=== PATIENT | female | born 1945 | race Caucasian/White ===

== ENCOUNTER → 2016-03-07 | Outpatient (CLI) | payer OTHER ==
[2016-03-07 16:06] LABS: HEMOGLOBIN A1C 6.46 % (4.2-6.0); MEAN BLOOD GLUCOSE (CALC) 129.118 mg/dL
== END ==
LOC: MOB LAB 11:51
DX: E11.9 Type 2 diabetes mellitus without complications (principal); I10 Essential (primary) hypertension; E55.9 Vitamin D deficiency, unspecified
CPT/HCPCS: 36415; 82306; 83036; 84443

== ENCOUNTER → 2016-03-13 | Outpatient (CLI) | payer OTHER ==
--- NOTE | 2016-03-14 16:26 | DI ---
CT BONE DENSITOMETRY OF THE SPINE AND HIP, 03/13/2016 12:36 PM : Clinical History: Asymptomatic post menopausal patient. Screening. Previous Exam: 12/14/2005. 3D Quantitative CT (QCT) Bone Mineral Densitometry: The [place] scans show mild compression fractures of T12 and L1. Low dose scans are sampled through t he midbodies of L1 and L2. Average bone mineral density (BMD) is 67.9 mg/mL corresponding to a volume tric T-score of -3.9 and Z-score of -0.7. The [employer]'s (ACR) volumetric QCT BM D conversion table categorizes this patient as having osteoporosis of the lumbar spine. The previous study gave a bone mineral density value of 109.[address] X-Ray Absorptiometry (CTXA) Bone Mineral Densitometry of the Left Hip: Total hip BMD: 658 mg/cm2 T-score: -2.3 Z-score: -0.7 Femoral neck BMD: 488 mg/cm2 T-score: -2.8 Z-score: -1.3 Note: T-scores of the spine and hip are discordant approximately 40% of the times. Changes in actual QCT or CTXA/DEXA measurements are more reliable in assessment of change in BMD status rather than hakeem nges in T-scores. READIN. The QCT lumbar spine BMD value by ACR's 3D volumetric to 2D areal conversion categorizes this pat ient as having osteoporosis of the lumbar spine. The QCT spine T-score is -3.9. The presence of the c ompression fractures at T12 and L1 indicate this patient by definition has severe osteoporosis. 2. The CTXA total hip and femoral neck BMD T-scores are -2.3 and -2.8, respectively. The left total hip T-score indicates this patient has osteopenia of the hip.
== END ==
LOC: CT 12:31
DX: Z13.820 Encounter for screening for osteoporosis (principal); M85.80 Other specified disorders of bone density and structure, unspecified site
CPT/HCPCS: 77078

== ENCOUNTER → 2016-04-17 | Outpatient (CLI) | payer OTHER ==
[2016-04-17 08:16] LABS: BUN/CREATININE RATIO 21.81 (6-20); CALCIUM 9.7 mg/dL (8.7-10.7); CREATININE 1.1 mg/dL (0.50-1.20); PHOSPHORUS 4.3 mg/dl (2.4-4.3); POTASSIUM 4.5 meq/L (3.8-5.2)
== END ==
LOC: LAB 06:29
DX: M81.0 Age-related osteoporosis without current pathological fracture (principal)
CPT/HCPCS: 36415; 80048; 84100

== ENCOUNTER → 2016-04-19 | Outpatient (CLI) | payer OTHER | LOC: MMPC 09:00 | DX: M81.0 Age-related osteoporosis without current pathological fracture (principal) | CPT/HCPCS: G0463; J0897 ==

== ENCOUNTER → 2016-05-03 | Outpatient (CLI) | payer OTHER | LOC: MMPC 09:00 | DX: R10.11 Right upper quadrant pain (principal); F03.90 Unspecified dementia, unspecified severity, without behavioral disturbance, psychotic disturbance, mood disturbance, and anxiety; E11.9 Type 2 diabetes mellitus without complications; E66.01 Morbid (severe) obesity due to excess calories; I10 Essential (primary) hypertension; G40.909 Epilepsy, unspecified, not intractable, without status epilepticus; M54.5 Low back pain; M25.561 Pain in right knee; M25.562 Pain in left knee; M81.0 Age-related osteoporosis without current pathological fracture | CPT/HCPCS: 99213; G0463 ==

== ENCOUNTER → 2016-06-24 | Outpatient (CLI) | payer OTHER | LOC: MMPC 09:00 | PROVIDERS: ATTEND Physician Assistant Medical | DX: K04.7 Periapical abscess without sinus (principal) | CPT/HCPCS: 99213; G0463 ==

== ENCOUNTER → 2016-07-05 | Outpatient (CLI) | payer OTHER | LOC: MMPC 11:11 | DX: E11.9 Type 2 diabetes mellitus without complications (principal); K05.6 Periodontal disease, unspecified; I48.91 Unspecified atrial fibrillation; K21.9 Gastro-esophageal reflux disease without esophagitis; E55.9 Vitamin D deficiency, unspecified; M81.0 Age-related osteoporosis without current pathological fracture; I10 Essential (primary) hypertension; F03.90 Unspecified dementia, unspecified severity, without behavioral disturbance, psychotic disturbance, mood disturbance, and anxiety ==

== ENCOUNTER → 2016-07-05 | Outpatient (CLI) | payer OTHER ==
[2016-07-05 15:49] LABS: BASOPHILS # (AUTO) 0.07 10*3/UL; BASOPHILS % (AUTO) 1.2 % (0-1); EOSINOPHILS # (AUTO) 0.17 10*3/UL; EOSINOPHILS % (AUTO) 2.9 % (0-8); HEMATOCRIT 38.4 % (37.0-47.0); HEMOGLOBIN 12.5 g/dL (12.0-16.0); LYMPHOCYTES # (AUTO) 1.67 10*3/uL; MEAN CORPUSCULAR HEMOGLOBIN 31.1 PG (27-31); MEAN CORPUSCULAR HGB CONC 32.6 g/dL (33-37); MEAN CORPUSCULAR VOLUME 95.5 FL (81-99); MEAN PLATELET VOLUME 9.7 FL (7.4-12.2); MONOCYTES # (AUTO) 0.43 10*3/UL (0.3-0.8); MONOCYTES % (AUTO) 7.3 % (5-15); NEUTROPHILS # (AUTO) 3.57 10*3/UL; NEUTROPHILS % (AUTO) 60.3 % (50-80); RED BLOOD COUNT 4.02 10^6/uL (4.20-5.40)
[2016-07-05 15:50] LABS: PLATELET MORPHOLOGY COMMENT NORMAL MORPHOLOGY (NORM); RBC MORPHOLOGY COMMENT NORMAL MORPHOLOGY (NORM); WBC MORPHOLOGY COMMENT NORMAL MORPHOLOGY (NORM)
[2016-07-05 16:17] LABS: BLOOD UREA NITROGEN 28 mg/dL (7-22); CALCIUM 10.2 mg/dL (8.7-10.7); SERUM ALBUMIN 4.1 g/dL (3.5-4.8)
[2016-07-05 16:18] LABS: HEMOGLOBIN A1C 6.11 % (4.2-6.0)
== END ==
LOC: MOB LAB 13:31
DX: E11.9 Type 2 diabetes mellitus without complications (principal); I10 Essential (primary) hypertension; E78.5 Hyperlipidemia, unspecified; K05.6 Periodontal disease, unspecified
CPT/HCPCS: 36415; 80053; 83036; 85025

== ENCOUNTER → 2016-07-13 | Outpatient (CLI) | payer OTHER | LOC: MMPC 15:00 | DX: E11.9 Type 2 diabetes mellitus without complications (principal); E66.9 Obesity, unspecified; Z71.3 Dietary counseling and surveillance | CPT/HCPCS: G0108 ==

== ENCOUNTER → 2016-07-28 | Outpatient (CLI) | payer OTHER | LOC: MMPC 09:00 | PROVIDERS: ATTEND Physician Assistant Medical | DX: R05 Cough (principal); J98.8 Other specified respiratory disorders | CPT/HCPCS: 99213; G0463 ==

== ENCOUNTER → 2016-10-12 | Outpatient (CLI) | payer OTHER ==
[2016-10-12 16:10] LABS: BLOOD UREA NITROGEN 21 mg/dL (7-22); CALCIUM 10.3 mg/dL (8.7-10.7)
== END ==
LOC: MOB LAB 14:10
DX: E11.9 Type 2 diabetes mellitus without complications (principal); M81.0 Age-related osteoporosis without current pathological fracture; I10 Essential (primary) hypertension; E78.5 Hyperlipidemia, unspecified; R30.0 Dysuria; I48.91 Unspecified atrial fibrillation; E55.9 Vitamin D deficiency, unspecified; I63.9 Cerebral infarction, unspecified; F03.90 Unspecified dementia, unspecified severity, without behavioral disturbance, psychotic disturbance, mood disturbance, and anxiety; G40.909 Epilepsy, unspecified, not intractable, without status epilepticus
CPT/HCPCS: 36415; 80048; 84100

== ENCOUNTER → 2016-10-13 | Outpatient (CLI) | payer OTHER ==
[2016-10-13 10:13] LABS: BILIRUBIN,URINE NEGATIVE (NEG); CLARITY,URINE CLEAR (CLEAR); COLOR,URINE YELLOW; GLUCOSE, URINE (UA) NEGATIVE (NEG); NITRATE,URINE NEGATIVE (NEG); OCCULT BLOOD,URINE NEGATIVE (NEG); PH,URINE 5.5 (5.0-8.5); PROTEIN,URINE NEGATIVE (NEG); UROBILINOGEN,URINE 0.2 mg/dL (0.2)
[2016-10-13 10:15] LABS: BACTERIA,URINE MANY; RBC,URINE 0-3 /hpf; SQUAMOUS EPITHELIAL CELL,UR RARE; URINE SAMPLE TYPE CLEAN CATCH URINE
== END ==
LOC: MOB LAB 08:39
DX: R30.0 Dysuria (principal); R82.71 Bacteriuria
CPT/HCPCS: 81001; 87077; 87088; 87186

== ENCOUNTER 2018-05-22 12:14 | Inpatient (IN) ==
[2018-05-22] MEDS ORDERED: Sodium Chloride 0.9% 1,000 ML PRIMARY IV ONE ×3 (12:26→15:45)
--- NOTE | 2018-05-22 12:40 | PDOC ---
General Adult HPI - General Chief Complaint: Neurological Complaints Stated Complaint: SLURRED SPEECH, WEAKNESS Date Seen by Provider: 05/22/18 Time Seen by Provider: 12:25 Source: POSITIVE: Patient, EMS, Other (Family member) Exam Limitations: POSITIVE: No limitations Nurse's Notes Reviewed & Considered: Yes EMS Report Reviewed & Considered: Verbal - History of Present Illness Initial Comment: The patient is a 73-year-old female who is brought to the emergency department by ambulance after she developed acute weakness. She apparently was walking to the bathroom when she states she "froze up". She called out to her family member because she was unable to move. She did not pass out completely however she stated that she just felt very weak. Her daughter stated that her speech seemed somewhat slow or slurred however by the time EMS personnel arrived the patient was alert and answering questions appropriately. She continues to have weakness, primarily in both legs at this point. She denies any headache, chest pain, shortness of breath, change in vision. There was no apparent seizure a ctivity. The patient does have a history of previous intracranial hemorrhage as well as a second stroke 2 weeks later according to her family member. She does have some baseline dementia according to her family member. EMS noted that her blood sugar was in the 340s. The patient denied being diabetic to me however she is on diabetic medications. She apparently has not had any recent illness or falls. She does wear oxygen at night. Have you received a tetanus shot in the past 10 years?: Unknown - Patient Home Medications Home Medications: Home Medications Oxygen (O2) 1 unit NASAL HS #1.5 unit 11/27/12 Donepezil HCl 1 tab ORAL BID #60 tab 06/26/14 Blood-Glucose Meter [Freestyle Lite Meter] 1 ea MC QD #1 pkg 07/16/14 Lacosamide [Vimpat] 1 tab ORAL BID #180 tab 07/16/14 Blood Sugar Diagnostic [Freestyle Test Strips] 1 ea IN BID PRN #180 unit 07/22/14 Cholecalciferol (Vitamin D3) [Vitamin D3] 2 tab PO QD #60 tab 12/29/14 Citalopram Hydrobromide [Citalopram Hbr] 1 tab PO QD #90 tab 01/11/16 Amoxicillin/Potassium Clav [Augmentin 875-125 Tablet] 1 tab PO Q12H #20 tab 07/28/16 cyanocobalamin (vit B-12) 1,000 mcg/mL injection solution 1,000 mcg IM MONTHLY #6 vial 12/21/16 acetaminophen ER 650 mg tablet,extended release 650 mg PO Q8H PRN 06/07/17 pravastatin 80 mg tablet 80 mg PO QD #90 tab 10/08/17 losartan 100 mg-hydrochlorothiazide 12.5 mg tablet 1 tab PO QD #90 tab 01/08/18 metoprolol succinate ER 25 mg tablet,extended release 24 hr 12.5 mg PO QDAY #45 tab 02/13/18 pantoprazole 40 mg tablet,delayed release 40 mg PO BID #180 tab 02/13/18 cephalexin 250 mg capsule 250 mg PO QDAY #30 cap 02/26/18 denosumab 60 mg/mL subcutaneous syringe 60 mg SUBCUT ONCE ml 03/26/18 citalopram 20 mg tablet 20 mg PO QDAY #90 tab 04/10/18 - Patient Allergies Allergies/Adverse Reactions: Allergies Allergy/AdvReac Type Severity Reaction Status Date / Time pregabalin [From Lyrica] Allergy Severe Anaphylaxis Verified 05/22/18 12:31 tramadol Allergy Intermediate Anaphylaxis Verified 05/22/18 12:31 SURGICAL TAPE Allergy Intermediate RASH Uncoded 05/22/18 12:31 Past Medical History - heen HEENT History: Denies History Cardiovascular History: Hypertension, Hyperlipidemia Additional Cardiovasular History: Atrial Fibrillation Respiratory History: Snoring Gastrointestinal History: GERD, Other (please comment) Additional Gastrointestinal History: HX OF GASTRIC BY PASS IN 2003 AND HAD ULCER IN AUGUST 2011 IN HOSPITAL WITH PAIN, BUT HEALED NOW AND NO PAIN Genitourinary History: Denies History Endocrine History: Type 2 Diabetes (oral) Musculoskeletal History: Arthritis, Back Pain, Joint Pain Prosthesis or Implant: Yes (BILATERAL KNEE REPLACEMENTS) Additional Musculoskeletal History: BILATERAL KNEE REPLACEMENTS Neurological History: CVA Additional Neurological History: CVA X2, SEIZURES Blood Disorders: Denies History Psychiatric History: Depression, Anxiety Disorders History of Sexually Transmitted Diseases: No Cancer History: Denies History History of MDRO: Yes History of Other Communicable Diseases: No Alcohol Use: None In the Past 12 Months, Have Used or Abuse Any Substance: None Previous Surgical History: Yes Type / Date of Surgery: HERNIA REPAIR A CHILD, RIGHT QUAD REPAIR, FULL HYSTERECTOMY, CHOLECYSTECTOMY, TONSILLECTOMY, GASTRIC BYPASS SURGERY, BILATERAL CARPAL TUNNEL SURGERY, RIGHT SHOULDER REPAIR, BILATERAL KNEE. REPLACEMENTS. Anesthesia Reactions: No Malignant Hyperthermia: No Significant Family History: No pertinent family hx Past Medical History Reviewed: Reviewed - No Changes ROS - Limitations ROS Limitations: No Limitations Constitution: DENIES: Chills, Fever Cardiovascular: DENIES: Chest Pain, Heart Racing, Edema Respiratory: DENIES: Cough Non Productive, Cough Productive, Shortness Of Breath Neurological: REPORTS: Other (No focal numbness or weakness in her extremities, she does have generalized weakness which is more prominent in her legs). DENIES: Headache Gastrointestinal: DENIES: Abdominal Pain, Nausea, Vomitting Endocrine: REPORTS: Fatigue, Elevated Glucose (Per EMS in the 340s) Musculoskeletal: DENIES: Muscle Aches Genitourinary: REPORTS: Other (Her family member reports recent increase in urinary incontinence over the past several months, it appears that she is on Keflex for UTI prophylaxis, her family member reports recent test of her urine did not show any sign of infection) Eyes: DENIES: Vision Changes ENT: REPORTS: Denies Symptoms Skin: DENIES: Rash General Adult Exam - General Appearance General Appearance: POSITIVE: Alert, Cooperative, No Acute Distress - HEENT HEENT: POSITIVE: Head Inspection Nml, Eyes Inspection Nml, Ears Inspection Nml, Nose Inspection Nml, Pharynx Inspect. Nml, PERRL, EOMI - Neck Neck: POSITIVE: Normal Inspection. NEGATIVE: Lymphadenopathy - Respiratory Respiratory: POSITIVE: No Respiratory Distress, Breath Sounds Normal - Cardiovascular Cardiovascular: POSITIVE: Regular Rate & Rhythm, No Murmur Peripheral Pulses: Dorsalis-pedis (R): 2+, Dorsalis-pedis (L): 2+ - Abdomen Abdomen: Soft: (All Quadrants), Denies Tenderness: (All Quadrants) - Skin Skin: POSITIVE: Normal Color, No Rash - Extremities Additional Extremities Details: She has good outside cutter hand with both hands and is able to raise both arms symmetrically, she is unable to lift either of her legs off the bed on her own, she is able to step down with her foot bilaterally and equally - Neurological / 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 Chest x-ray shows cardiomegaly which is globular in appearance with no evidence of CHF per radiologist. Lab Results Reviewed by Me: Yes Lab Results:: Laboratory Results 05/22/18 05/22/18 05/22/18 12:15 12:15 12:15 WBC RBC Hgb Hct MCV MCH MCHC RDW Std Deviation RDW Coeff of Heladio Plt Count MPV Immature Gran % (Auto) Neut % (Auto) Lymph % (Auto) Christian % (Auto) Eos % (Auto) Baso % (Auto) Immature Gran # (Auto) Neut # (Auto) Lymph # (Auto) Christian # (Auto) Eos # (Auto) Baso # (Auto) WBC Morphology Comment Plt Morphology Comment RBC Morph Comment D-Dimer 0.72 H VBG pH VBG pCO2 VBG HCO3 VBG Base Excess Sodium Potassium Chloride Carbon Dioxide Anion Gap BUN Creatinine Estimated GFR BUN/Creatinine Ratio Glucose Calculated Osmolality Lactic Acid 3.5 H Calcium Magnesium 2.0 Total Bilirubin AST ALT Alkaline Phosphatase Troponin I C-Reactive Protein 0.6 Total Protein Albumin Globulin Albumin/Globulin Ratio Ur Collection Type Urine Color Urine Clarity Urine pH Ur Specific Butler Urine Protein Urine Glucose (UA) Urine Ketones Urine Occult Blood Urine Nitrate Urine Bilirubin Urine Urobilinogen Ur Leukocyte Esterase Ur Culture Indicated? 05/22/18 05/22/18 05/22/18 12:15 12:15 12:15 WBC 8.80 RBC 4.02 L Hgb 12.8 Hct 39.8 MCV 99.0 MCH 31.8 H MCHC 32.2 L RDW Std Deviation 45.1 RDW Coeff of Heladio 12.5 Plt Count 362 H MPV 10.3 Immature Gran % (Auto) 0.1 Neut % (Auto) 52.7 Lymph % (Auto) 41.6 Christian % (Auto) 3.4 L Eos % (Auto) 1.7 Baso % (Auto) 0.5 Immature Gran # (Auto) 0.01 Neut # (Auto) 4.64 Lymph # (Auto) 3.66 Christian # (Auto) 0.30 Eos # (Auto) 0.15 Baso # (Auto) 0.04 WBC Morphology Comment Normal morphology Plt Morphology Comment Normal morphology RBC Morph Comment Normal morphology D-Dimer VBG pH VBG pCO2 VBG HCO3 VBG Base Excess Sodium 136 Potassium 4.0 Chloride 103 Carbon Dioxide 15 L Anion Gap 18 BUN 22 Creatinine 1.5 H Estimated GFR Licensed Therapist BUN/Creatinine Ratio 14.66 Glucose 365 H Calculated Osmolality 299.0 H Lactic Acid Calcium 9.5 Magnesium Total Bilirubin 0.5 AST 25 ALT < 6 L Alkaline Phosphatase 48 Troponin I < 0.012 C-Reactive Protein Total Protein 6.3 Albumin 3.9 Globulin 2.4 L Albumin/Globulin Ratio 1.60 Ur Collection Type Urine Color Urine Clarity Urine pH Ur Specific Butler Urine Protein Urine Glucose (UA) Urine Ketones Urine Occult Blood Urine Nitrate Urine Bilirubin Urine Urobilinogen Ur Leukocyte Esterase Ur Culture Indicated? 05/22/18 05/22/18 12:30 13:45 WBC RBC Hgb Hct MCV MCH MCHC RDW Std Deviation RDW Coeff of Heladio Plt Count MPV Immature Gran % (Auto) Neut % (Auto) Lymph % (Auto) Christian % (Auto) Eos % (Auto) Baso % (Auto) Immature Gran # (Auto) Neut # (Auto) Lymph # (Auto) Christian # (Auto) Eos # (Auto) Baso # (Auto) WBC Morphology Comment Plt Morphology Comment RBC Morph Comment D-Dimer VBG pH 7.20 L VBG pCO2 45 VBG HCO3 18 L VBG Base Excess -10 L Sodium Potassium Chloride Carbon Dioxide Anion Gap BUN Creatinine Estimated GFR BUN/Creatinine Ratio Glucose Calculated Osmolality Lactic Acid Calcium Magnesium Total Bilirubin AST ALT Alkaline Phosphatase Troponin I C-Reactive Protein Total Protein Albumin Globulin Albumin/Globulin Ratio Ur Collection Type Cath specimen Urine Color Yellow Urine Clarity Clear Urine pH 5.5 Ur Specific Butler 1.020 Urine Protein Trace Urine Glucose (UA) Negative Urine Ketones Negative Urine Occult Blood Negative Urine Nitrate Negative Urine Bilirubin Small Urine Urobilinogen 0.2 Ur Leukocyte Esterase Negative Ur Culture Indicated? Culture not set CBC and BMP: 05/22/18 12:15 05/22/18 12:15 EKG Interpretation:: POSITIVE: Other (Her EKG appears to show a sinus rhythm although there is some baseline artifact in the exact rhythm is unclear, she has normal QRS complexes and no ST segment depression or elevation, no T-wave inversions.) - Patient's Progress MDM / ED Course: On arrival to the emergency department the patient is awake and alert and answers questions appropriately. She does not exhibit any focal neurologic deficits. She is still weak in both legs and unable to raise either of her legs off the bed on her own. Initial EKG shows a questionable rhythm secondary to some baseline artifact however appears to be a sinus rhythm with no acute ST segment changes or T-wave inversions. Her blood sugar per EMS was in the 340s. Venous blood gas was obtained which shows a pH of 7.2 with a PCO2 of 44 bicarbonate of 17 and an anion gap of 24. Blood sugar was elevated at 356. She was given a 1 L bolus of normal saline. In addition she was placed on oxygen secondary to oxygen saturations being in the upper 80s to low 90s. She was placed on a CO2 monitor as well. Blood cultures and lactate were drawn shortly after arrival. Her white count and CRP were found to be normal. Troponin was normal. D-dimer was slightly elevated at 0.7. Her creatinine is 1.5. Her lactate was mildly elevated at 3.5. CT scan of the head showed no acute abnormalities per radiologist and chest x-ray showed cardiomegaly with no e vidence of CHF or infiltrate. A catheter urinalysis was negative for infection. At this point the patient does show evidence of metabolic acidosis, most likely secondary to DKA given her elevated blood sugar. After administrations of fluids the patient is feeling better and she is able to lift both of her legs off the bed on her own. I did discuss current findings with the patient and her family. Decision was made to admit for further treatment per Dr. Geller. Blood sugar will be rechecked after her fluid bolus has completed. - Consult Counseled: POSITIVE: Patient, Family, RE: Lab Results, RE: Radiology Results, RE: DX, RE: Need for F/U Patient Care Time - Estimated PCT Patient Care Time (In Minutes): 60 Vital Signs - Recent Vital Signs Vital Signs: Vital Signs (Last 8 hours) Temp Pulse Resp BP Pulse Ox 05/22/18 12:16 97.4 F 91 20 116/57 91 - VS Reviewed Vital Signs Reviewed: Yes Discharge Clinical Impression: Weakness, Near syncope, Metabolic acidosis, Elevated glucose Discharge Disposition: Admit to Inpatient Condition: Fair Follow Up With: Pierre Roth [Primary Care Provider] - Date Decision to Admit to Inpatient: 05/22/18 Time Decision to Admit to Inpatient: 14:15
[2018-05-22 13:04] LABS: BASOPHILS # (AUTO) 0.04 10*3/UL; BASOPHILS % (AUTO) 0.5 % (0-1); BLOOD UREA NITROGEN 22 mg/dL (7-22); BUN/CREATININE RATIO 14.66 (6-20); EOSINOPHILS # (AUTO) 0.15 10*3/UL; EOSINOPHILS % (AUTO) 1.7 % (0-8); Hematocrit [HCT] 39.8 % (37.0-47.0); Hemoglobin [HGB] 12.8 g/dL (12.0-16.0); LYMPHOCYTES # (AUTO) 3.66 10*3/uL; MEAN CORPUSCULAR HEMOGLOBIN 31.8 PG (27-31); MEAN CORPUSCULAR HGB CONC 32.2 g/dL (33-37); MEAN PLATELET VOLUME 10.3 FL (7.4-12.2); MONOCYTES % (AUTO) 3.4 % (5-15); NEUTROPHILS # (AUTO) 4.64 10*3/UL; NEUTROPHILS % (AUTO) 52.7 % (50-80); RED BLOOD COUNT 4.02 10^6/uL (4.20-5.40); SERUM ALBUMIN 3.9 g/dL (3.5-4.8)
[2018-05-22 13:05] LABS: VENOUS PH 7.2 (7.32-7.42)
[2018-05-22 13:12] LABS: PLATELET MORPHOLOGY COMMENT NORMAL MORPHOLOGY (NORM); RBC MORPHOLOGY COMMENT NORMAL MORPHOLOGY (NORM); WBC MORPHOLOGY COMMENT NORMAL MORPHOLOGY (NORM)
--- NOTE | 2018-05-22 13:29 | DI ---
CT HEAD SCAN WITHOUT IV CONTRAST, 05/22/2018 12:26 PM : Clinical History: Weakness. Near syncope. Previous Exam: 07/24/2012. Technique: Performed from the foramen magnum to vertex without IV contrast. Contrast Volume: None. 4th Ventricle: Normal. 3rd Ventricle: Mildly dilated, but normal for age. Lateral Ventricles: Mildly dilated, but normal for age. Sella: Normal size and normal pituitary gland. Cerebrum: Normal. No acute hemorrhagic or bland infarct. Multiple punctate periventricular white leroy er lucencies bilaterally extend into the watershed territory, consistent with small vessel ischemic d isease. This amount of ischemic disease is appropriate for the patient's age. Cerebellum: Normal. No cerebellopontine angle mass. Normal cerebellar tonsillar position. Brainstem: Normal. Atrophy: Moderate cerebellar and cerebral atrophy. Extracerebral Mantles/Midline Shift: No extracerebral mantle or dural lesion. No midline shift. Sinuses: 12 mm mucous retention cyst or polyp on the floor of the left sphenoid sinus. Skull: Intact. READIN. No acute hemorrhagic or bland infarct. Small vessel ischemic disease. 2. Moderate cerebellar and cerebral atrophy.
--- NOTE | 2018-05-22 13:38 | DI ---
AP CHEST X-RAY, 05/22/2018 12:26 PM : Clinical History: Weakness. Hypoxia. Previous Exam: None at this facility. Soft Tissues: No acute soft tissue abnormality. Bones: Normal. Heart: Cardiomegaly without CHF. The heart does have a globular configuration but this may partially be secondary to the shallow inspiratory effort. Either a cardiomyopathy or a pericardial effusion can not entirely be excluded. Lungs: No infiltrates. Effusion(s): None. Mediastinum: Normal mediastinum. Nodules: No pulmonary nodules. On the prior exam, there were 2 nodules identified. The larger lesion was located in the right lower lobe and this nodule may be obscured by the right diaphragm. The small er lesion was located in the left upper lobe and this is barely visible so the measurements cannot be accurately determined. However, the gross estimation of its size shows that it has not increased and is consistent with a benign granuloma. Readin. No acute infiltrate or effusion. 2. Cardiomegaly without CHF. The heart has a globular configuration and this finding may either repr esent a pericardial effusion or cardiomyopathy if the cardiac configuration is real and not related t o the shallow inspiratory effort.
[2018-05-22 13:56] LABS: BILIRUBIN,URINE SMALL (NEG); CLARITY,URINE CLEAR (CLEAR); COLOR,URINE YELLOW (Y); GLUCOSE, URINE (UA) NEGATIVE (NEG); OCCULT BLOOD,URINE NEGATIVE (NEG); PH,URINE 5.5 (5.0-8.5); PROTEIN,URINE TRACE mg/dl (NEG); UROBILINOGEN,URINE 0.2 EU/dL (0.2)
[2018-05-22 13:58] LABS: URINE SAMPLE TYPE CATH SPECIMEN
--- NOTE | 2018-05-22 14:34 | PDOC ---
HPI - History of Present Illness History of Present Illness: This very nice 71-year-old female with past medical history significant for diabetes but she was taken off her metformin because her hemoglobin A1c was 6. Comes to the ER transported by ambulance because of generalized weakness she was accompanied to the ground by her family member patient became generalized weak while in the ER here diagnosed with elevated sugar and acidosis mild DKA after 1 L of fluid patient and does feel better and moves all 4 extremities and is awake alert and oriented. She also has a history of intracranial hemorrhage and CVA this is per the family member also has dementia as well Past Medical History Medical History: Diabetes, hypertension, hypercholesterolemia, depression, dementia, seizure disorder Surgical History: HX OF GASTRIC BY PASS IN 2003 AND HAD ULCER IN AUGUST 2011 IN HOSPITAL WITH PAIN, bilateral knee replacements Tobacco Use: Never Smoker In the Past 12 Months, Have Used or Abuse Any of the Following Substance: None Medication / Allergies Home Medications: Home Medications Medication Instructions Recorded Confirmed Type Oxygen (O2) 1 unit NASAL HS #1.5 unit 11/27/12 05/22/18 History Donepezil HCl 1 tab ORAL BID #60 tab 06/26/14 05/22/18 History Blood-Glucose Meter [Freestyle 1 ea MC QD #1 pkg 07/16/14 05/22/18 History Lite Meter] Lacosamide [Vimpat] 1 tab ORAL BID #180 tab 07/16/14 05/22/18 History Blood Sugar Diagnostic [Freestyle 1 ea IN BID PRN #180 unit 07/22/14 05/22/18 History Test Strips] Cholecalciferol (Vitamin D3) 2 tab PO QD #60 tab 12/29/14 05/22/18 History [Vitamin D3] Citalopram Hydrobromide 1 tab PO QD #90 tab 01/11/16 Clinic [Citalopram Hbr] Amoxicillin/Potassium Clav 1 tab PO Q12H #20 tab 07/28/16 Clinic [Augmentin 875-125 Tablet] cyanocobalamin (vit B-12) 1,000 1,000 mcg IM MONTHLY #6 vial 12/21/16 05/22/18 Rx mcg/mL injection solution acetaminophen ER 650 mg 650 mg PO Q8H PRN 06/07/17 05/22/18 History tablet,extended release pravastatin 80 mg tablet 80 mg PO QD #90 tab 10/08/17 05/22/18 Rx losartan 100 1 tab PO QD #90 tab 01/08/18 05/22/18 Rx mg-hydrochlorothiazide 12.5 mg tablet metoprolol succinate ER 25 mg 12.5 mg PO QDAY #45 tab 02/13/18 05/22/18 Rx tablet,extended release 24 hr pantoprazole 40 mg tablet,delayed 40 mg PO BID #180 tab 02/13/18 05/22/18 Rx release cephalexin 250 mg capsule 250 mg PO QDAY #30 cap 02/26/18 05/22/18 Rx denosumab 60 mg/mL subcutaneous 60 mg SUBCUT ONCE ml 03/26/18 05/22/18 History syringe citalopram 20 mg tablet 20 mg PO QDAY #90 tab 04/10/18 05/22/18 Rx Allergies/Adverse Reactions: Allergies Allergy/AdvReac Type Severity Reaction Status Date / Time pregabalin [From Lyrica] Allergy Severe Anaphylaxis Verified 05/22/18 12:31 tramadol Allergy Intermediate Anaphylaxis Verified 05/22/18 12:31 SURGICAL TAPE Allergy Intermediate RASH Uncoded 05/22/18 12:31 Review of Systems - Review of Systems All Systems: Reviewed & No Additional Complaints Except as Stated - Constitutional Constitutional: REPORTS: General Health Fair - Respiratory Respiratory: DENIES: Negative System Review, Cough, Sputum, Dyspnea At Rest, Dyspnea with Exertion, Pleuritic Pain, Hemoptysis, Wheezing, Other, See HPI - Cardiovascular Cardiovascular: DENIES: Negative System Review, Chest Pain, Edema, Syncope, Palpitations, Orthopnea, Paroxysmal Nocturnal Dyspnea, Other, See HPI Exam - Vitals Vital Signs: Vital Signs Temperature 97.4 F Temperature Source Temporal Artery Scan Pulse Rate [Pulse Oximeter 91 Left] Respiratory Rate 20 Blood Pressure [Right Arm] 116/57 Pulse Ox 91 Oxygen Delivery Method Room Air Height 5 ft 5 in Weight 250 lb - General General Appearance: No Acute Distress, Cooperative, Obese - Head Head Exam: Normal Inspection, Normocephalic, Atraumatic - Eye Eye Exam: POSITIVE: Normal Appearance, PERRL, EOMI, No Scleral Icterus - Neck Neck Exam: Normal Inspection, Full ROM, No Tenderness, No Lymphadenopathy, No Thyromegaly, JVP is not Raised - Respiratory Respiratory Exam: POSITIVE: Clear to Auscultation - Bilaterally, Breathing Non Labored, Normal To Percussion, Normal to Percussion and Palpation - Cardiovascular Cardiovascular Exam: POSITIVE: RRR, No Murmur, No Clicks, No Gallops, No Rubs, PMI Non-Displaced - GI/Abdominal GI/Abdominal Exam: POSITIVE: Normal Bowel Sounds, Non Tender, Non Distended, Soft, No Masses, No Hepatomegaly, No Splenomegaly, No Organomegaly - Extremities Extremities Exam: POSITIVE: No Clubbing Present, No Edema Present - Neurological Neurological Exam: POSITIVE: Alert, No Facial Droop, Speech Intact / Clear, Moves All Extremities Equally. NEGATIVE: Altered, Motor Sensory Deficit, No Fasciculations Results - Labs CBC and BMP: 05/22/18 12:15 05/22/18 12:15 Assessment and Plan - Patient Problems (1) DKA (diabetic ketoacidoses) Current Visit: Yes Status: Acute Comment: Admit to ICU, start insulin drip, maintaining sugars around 202 on 9 gap acidosis is resolved. Check labs hydrate replace potassium and check CMP frequently will have eICU manage Code(s): E13.10 - Other specified diabetes mellitus with ketoacidosis without coma (2) Metabolic acidosis due to diabetes mellitus Current Visit: Yes Status: Acute Comment: See above Code(s): E11.69 - Type 2 diabetes mellitus with other specified complication; E87.2 - Acidosis (3) Diabetes mellitus type 2 in obese Current Visit: No Status: Chronic Onset Date: 02/21/12 Code(s): E11.69 - Type 2 diabetes mellitus with other specified complication; E66.9 - Obesity, unspecified
[2018-05-22] MEDS ORDERED: ONDANSETRON 4 MG/2 ML VIAL IVP PRN (15:18)
[2018-05-22] MEDS ORDERED: Sodium Chloride 0.9% 1,000 ML PRIMARY IV SCH (15:18)
[2018-05-22] MEDS ORDERED: LIDOCAINE W/ SODIUM BICARB 0.5 ML SYR SUBD PRN (15:18)
[2018-05-22] MEDS ORDERED: Insulin Regular Inj 100 UNIT in Sodium Chloride 0.9% 99 ML IV SCH (15:18)
[2018-05-22] MEDS ORDERED: Non-Formulary Drug (Denosumab [Prolia] 60 MG) SUBCUT SCH (15:18)
[2018-05-22] MEDS ORDERED: DEXTROSE 31 GM GEL PO PRN (15:18)
[2018-05-22] MEDS ORDERED: DEXTROSE 50%-WATER SYRINGE 50 ML SYRINGE IVP PRN (15:18)
[2018-05-22] MEDS ORDERED: Glucagon Inj Vial 1 MG/ML VIAL IM PRN (15:18)
[2018-05-22] MEDS: PANTOPRAZOLE IV 40 MG VIAL IVP SCH (16:53)
[2018-05-22 19:35] LABS: BLOOD UREA NITROGEN 21 mg/dL (7-22)
[2018-05-22] MEDS: LACOSAMIDE 150 MG ORAL SCH (20:17)
[2018-05-22] MEDS: DONEPEZIL 5 MG TABLET PO SCH (20:17)
[2018-05-22] MEDS ORDERED: Pravastatin 80mg Tab PO SCH (21:00)
[2018-05-22 23:30] LABS: BLOOD UREA NITROGEN 20 mg/dL (7-22); BUN/CREATININE RATIO 18.18 (6-20)
[2018-05-23 04:09] LABS: BLOOD UREA NITROGEN 19 mg/dL (7-22)
[2018-05-23] MEDS ORDERED: HYDROCHLOROTHIAZIDE 12.5 MG CAPSULE PO SCH (07:00)
[2018-05-23 07:33] LABS: VENOUS PH 7.4 (7.32-7.42)
[2018-05-23 07:38] VITALS: TEMP 98.2
[2018-05-23 07:43] LABS: BLOOD UREA NITROGEN 17 mg/dL (7-22); BUN/CREATININE RATIO 15.45 (6-20)
[2018-05-23 08:33] VITALS: RESP 16
[2018-05-23] MEDS ORDERED: CITALOPRAM 20 MG TABLET PO SCH ×2 (09:00→11:15)
[2018-05-23] MEDS ORDERED: LOSARTAN 50 MG TABLET PO SCH (09:00)
[2018-05-23] MEDS ORDERED: Metoprolol TARTRATE Tab 25 MG TAB PO SCH ×2 (09:00→11:15)
[2018-05-23 09:58] VITALS: BP 132/80
[2018-05-23] MEDS ORDERED: DEXTROSE 50%-WATER SYRINGE 50 ML SYRINGE IVP PRN (09:58)
[2018-05-23] MEDS ORDERED: Glucagon Inj Vial 1 MG/ML VIAL IM PRN (09:58)
[2018-05-23] MEDS ORDERED: Insulin Sliding Scale Protocol SUBCUT PRN (09:58)
[2018-05-23] MEDS ORDERED: DEXTROSE 31 GM GEL PO PRN (09:58)
[2018-05-23] MEDS ORDERED: Insulin Lispro Flexpen 300 UNIT/3 ML INSULN.PEN SUBCUT SCH (11:00)
[2018-05-23] MEDS ORDERED: DONEPEZIL 5 MG TABLET PO SCH ×2 (11:15→21:00)
[2018-05-23] MEDS ORDERED: PANTOPRAZOLE 40 MG TABLET PO SCH ×2 (11:15→21:00)
[2018-05-23 11:30] VITALS: O2SAT 95
[2018-05-23] MEDS: DONEPEZIL 5 MG TABLET PO SCH (11:55)
[2018-05-23] MEDS: PANTOPRAZOLE IV 40 MG VIAL IVP SCH (11:55)
[2018-05-23] MEDS: LACOSAMIDE 150 MG ORAL SCH (11:55)
[2018-05-23] MEDS: D5-1/2NS 1,000 ML PRIMARY IV SCH (12:12)
--- NOTE | 2018-05-23 14:12 | DCSUMMARY ---
Hospitalization Summary Admit Date: 05/22/2018 Discharge Date: 05/23/18 Primary Diagnosis:: uncontrolled diabetes mellitus type II Secondary Diagnosis:: Possible DKA versus HHNK Hospital Course: This very pleasant 73-year-old female that was admitted with a high blood sugar, acidosis, but no ketones in her urine. It is not clear whether she was in diabetic ketoacidosis but she did have an anion gap. She could've had a hyperosmolar nonketotic acidosis, but it is just not clear. Either way, she got insulin in the emergency room, was admitted with insulin drip protocols for diabetic ketoacidosis, but had such low blood sugars after initial insulin treatment that that resolved and she never did require insulin on the floor. She had IV fluids and was much better hydrated. Today, the patient has no complaints. Her anion gap is closed. There is no acidosis, and the family would like to take her home. After reviewing her recent primary care notes, seeing her hemoglobin A1c levels, I think she may be having some very high blood sugars and very low blood sugars, which might explain why she had such a high blood sugar on admission, but I think she would benefit from a medication that is not likely to cause hypoglycemia and help mitigate some of these very high blood pressures. I recommended that we resume metformin at one pill per day. I also recommended the that he check blood sugars at least once a day preferably before meals. He can do these randomly throughout the week. She did have a bit of a cough today, and it was reported that that started yesterday, and I looked at the chest x-ray and there is no acute infiltrate. I suspect that there may be minimal fluid overload, but she is on an DIONNE inhibitor and a diuretic. The patient's , and her daughter agreed with the plan above. No complaints of chest pain, shortness breath, nausea or vomiting. Patient's history is compromised by her dementia. Assessment and Plan: 1. As per discharge assessments noted 2. Disposition: Patient is discharged home. 3. Condition on discharge, stable and improved. 4. Diet: regular diet 5. Activities: resume normal activities 6. Follow-Up: 1. Dr. Roth in one week 7. Medications at the Time of Discharge: Exam - Vitals Vital Signs: Vital Signs Temperature 98.2 F Temperature Source Oral Pulse Rate [Pulse Oximeter 65 Left] Pulse Rate [Sitting] 52 Pulse Rate [Lying] 64 Pulse Rate 63 Respiratory Rate 16 Blood Pressure [Sitting] 91/29 Blood Pressure [Lying] 107/86 Blood Pressure [Right Arm] 132/80 Blood Pressure 95/79 Pulse Ox 95 Oxygen Flow Rate 2 Oxygen Delivery Method Room Air Height 5 ft 5 in Weight 248 lb 9.6 oz - General General Appearance: No Acute Distress, Cooperative - Eye Eye Exam: POSITIVE: No Scleral Icterus - ENT ENT Exam: POSITIVE: Mucous Membranes Moist - Respiratory Respiratory Exam: POSITIVE: Clear to Auscultation - Bilaterally, Breathing Non Labored - Cardiovascular Cardiovascular Exam: POSITIVE: RRR, No Murmur, No Clicks, No Gallops, No Rubs, No JVD - GI/Abdominal GI/Abdominal Exam: POSITIVE: Normal Bowel Sounds, Non Tender, Non Distended, Soft - Extremities Extremities Exam: POSITIVE: No Clubbing Present, No Edema Present, No Cyanosis Present - Neurological Neurological Exam: POSITIVE: Alert, No Facial Droop, Speech Intact / Clear, Moves All Extremities Equally Data Peritnent Studies: Laboratory Results 05/22/18 05/22/18 05/22/18 14:35 19:23 19:23 VBG pH VBG pCO2 VBG HCO3 VBG Base Excess Sodium 136 Potassium 3.9 Chloride 105 Carbon Dioxide 25 Anion Gap 6 BUN 21 Creatinine 1.2 BUN/Creatinine Ratio 17.50 Glucose 61 L 108 Mean Blood Glucose Hemoglobin A1c Calculated Osmolality 285.0 Lactic Acid Calcium 8.5 L Phosphorus 3.4 Magnesium 1.9 Urine Acetone Acetone Level 05/22/18 05/22/18 05/22/18 19:23 23:25 23:25 VBG pH VBG pCO2 VBG HCO3 VBG Base Excess Sodium 135 Potassium 4.1 Chloride 107 Carbon Dioxide 25 Anion Gap 3 L BUN 20 Creatinine 1.1 BUN/Creatinine Ratio 18.18 Glucose 106 Mean Blood Glucose Hemoglobin A1c Calculated Osmolality 282.0 Lactic Acid 0.7 Calcium 8.5 L Phosphorus 3.0 Magnesium 1.9 Urine Acetone Acetone Level 05/23/18 05/23/18 05/23/18 03:39 03:39 03:39 VBG pH VBG pCO2 VBG HCO3 VBG Base Excess Sodium 136 Potassium 4.7 Chloride 109 Carbon Dioxide 24 Anion Gap 3 L BUN 19 Creatinine 1.0 BUN/Creatinine Ratio 19.00 Glucose 112 H Mean Blood Glucose Hemoglobin A1c Calculated Osmolality 284.0 Lactic Acid Calcium 8.6 L Phosphorus 2.9 Magnesium 1.9 Urine Acetone Pending Acetone Level Small 05/23/18 05/23/18 05/23/18 07:25 07:29 07:29 VBG pH 7.40 VBG pCO2 38 L VBG HCO3 23 VBG Base Excess -2 Sodium 137 Potassium 4.7 Chloride 109 Carbon Dioxide 25 Anion Gap 3 L BUN 17 Creatinine 1.1 BUN/Creatinine Ratio 15.45 Glucose 122 H Mean Blood Glucose 107.140 Hemoglobin A1c 5.80 Calculated Osmolality 286.0 Lactic Acid Calcium 8.5 L Phosphorus Magnesium Urine Acetone Acetone Level 05/23/18 07:29 VBG pH VBG pCO2 VBG HCO3 VBG Base Excess Sodium Potassium Chloride Carbon Dioxide Anion Gap BUN Creatinine BUN/Creatinine Ratio Glucose Mean Blood Glucose Hemoglobin A1c Calculated Osmolality Lactic Acid Calcium Phosphorus 2.9 Magnesium 1.9 Urine Acetone Acetone Level Procedures: [address] [facility] [address] PH: DD: [phone] FAX: [phone] ~DIAGNOSTIC IMAGING REPORT~ - Patient: Bee Beard : 1945 Sex: F Age: 73 Exam Name: CT Head WO Contrast Exam Date: 05/22/18 Report # : [id number] CPT Code: 05581 EMR/MR #: [id number] Ordering: ROSA FANG Admiting: Primary: Pierre Roth MD Attending: Signed CT HEAD SCAN WITHOUT IV CONTRAST, 05/22/2018 12:26 PM : Clinical History: Weakness. Near syncope. Previous Exam: 07/24/2012. Technique: Performed from the foramen magnum to vertex without IV contrast. Contrast Volume: None. 4th Ventricle: Normal. 3rd Ventricle: Mildly dilated, but normal for age. Lateral Ventricles: Mildly dilated, but normal for age. Sella: Normal size and normal pituitary gland. Cerebrum: Normal. No acute hemorrhagic or bland infarct. Multiple punctate periventricular white matter lucencies bilaterally extend into the watershed territory, consistent with small vessel ischemic disease. This amount of ischemic disease is appropriate for the patient's age. Cerebellum: Normal. No cerebellopontine angle mass. Normal cerebellar tonsillar position. Brainstem: Normal. Atrophy: Moderate cerebellar and cerebral atrophy. Extracerebral Mantles/Midline Shift: No extracerebral mantle or dural lesion. No midline shift. Sinuses: 12 mm mucous retention cyst or polyp on the floor of the left sphenoid sinus. Skull: Intact. READIN. No acute hemorrhagic or bland infarct. Small vessel ischemic disease. 2. Moderate cerebellar and cerebral atrophy. Dictated By: 05/22/18 1315 MIYA SAPP MD. Signed By: 05/22/18 1329 MIYA SAPP MD. Patient Problems - Patient Problem List (1) Metabolic acidosis due to diabetes mellitus Current Visit: Yes Status: Acute Code(s): E11.69 - Type 2 diabetes mellitus with other specified complication; E87.2 - Acidosis Category: Medical (2) Dementia Current Visit: Yes Status: Acute Code(s): F03.90 - Unspecified dementia without behavioral disturbance Qualifiers: Dementia type: vascular dementia Dementia behavioral disturbance: without behavioral disturbance Qualified Code(s): F01.50 - Vascular dementia without behavioral disturbance Category: Medical (3) Atrial fibrillation Current Visit: Yes Status: Chronic Onset Date: 11/04/13 Code(s): I48.91 - Unspecified atrial fibrillation Qualifiers: Atrial fibrillation type: chronic Qualified Code(s): I48.2 - Chronic atrial fibrillation Category: Medical (4) GERD (gastroesophageal reflux disease) Current Visit: Yes Status: Chronic Code(s): K21.9 - Gastro-esophageal reflux disease without esophagitis Qualifiers: Esophagitis presence: esophagitis presence not specified Qualified Code(s): K21.9 - Gastro-esophageal reflux disease without esophagitis Category: Medical (5) Hypertension Current Visit: Yes Status: Chronic Onset Date: 06/03/12 Comment: Diagnosed 2012 Code(s): I10 - Essential (primary) hypertension Qualifiers: Hypertension type: essential hypertension Qualified Code(s): I10 - Essential (primary) hypertension Category: Medical (6) Morbid obesity Current Visit: Yes Status: Chronic Onset Date: 02/26/12 Code(s): E66.01 - Morbid (severe) obesity due to excess calories Category: Medical (7) Osteoporosis, unspecified Current Visit: No Status: Chronic Onset Date: 06/03/12 Comment: T score - 2.3 to -3.9, prolia Code(s): M81.0 - Age-related osteoporosis without current pathological fracture Qualifiers: Osteoporosis type: unspecified Category: Medical (8) Vitamin D deficiency, unspecified Current Visit: Yes Status: Chronic Onset Date: 06/03/12 Code(s): E55.9 - Vitamin D deficiency, unspecified Category: Medical (9) Cerebral amyloid angiopathy Current Visit: Yes Status: Suspected Comment: unclear Code(s): E85.4 - Organ-limited amyloidosis; I68.0 - Cerebral amyloid angiopathy Category: Medical
--- NOTE | 2018-05-23 14:12 | EKG ---
[address] [address] Measurements Intervals [place] Rate: 60 P: -88 MA: 250 QRS: 58 QRSD: 92 T: 63 QT: 487 QTc: 488 Interpretive Statements ECTOPIC ATRIAL RHYTHM WITH FIRST DEGREE AV BLOCK WITH OCCASIONAL SUPRAVENTRICULAR PREMATURE COMPLEXES MODERATE ST DEPRESSION [0.05+ mV ST DEPRESSION] PROLONGED QT INTERVAL Compared to ECG 06/16/2015 09:49:07 Ectopic atrial rhythm now present Prolonged QT interval now present Sinus rhythm no longer present ST (T wave) deviation still present Electronically Signed On 05-24-18 08:45:52 MDT by Gabino García MD [email or web address]
[2018-05-23] MEDS ORDERED: Pravastatin 80mg Tab PO SCH (21:00)
[2018-05-23] MEDS ORDERED: LACOSAMIDE ORAL SCH (21:00)
[2018-05-24] MEDS ORDERED: CHOLECALCIFEROL 1000 IU TABLET PO SCH (09:00)
[2018-05-24] MEDS ORDERED: CITALOPRAM 20 MG TABLET PO SCH (09:00)
[2018-05-24] MEDS ORDERED: Metoprolol TARTRATE Tab 25 MG TAB PO SCH ×2 (09:00)
== END 2018-05-23 15:08 | disposition home or self-care (01) | DRG 639 ==
LOC: ER 12:14 → ICU 14:49 → MED/SURG 05-23 09:49
PROVIDERS: ADMIT Internal Medicine; ATTEND Internal Medicine

== ENCOUNTER 2018-11-04 11:50 | Inpatient (IN) ==
[2018-11-04] MEDS ORDERED: Sodium Chloride 0.9% 1,000 ML PRIMARY IV ONE (12:12)
[2018-11-04 12:36] LABS: BASOPHILS # (AUTO) 0.05 10*3/UL; BASOPHILS % (AUTO) 1.2 % (0-1); EOSINOPHILS % (AUTO) 2.5 % (0-8); Hematocrit [HCT] 42.8 % (37.0-47.0); Hemoglobin [HGB] 13.2 g/dL (12.0-16.0); LYMPHOCYTES # (AUTO) 1.23 10*3/uL; MEAN CORPUSCULAR HGB CONC 30.8 g/dL (33-37); MEAN CORPUSCULAR VOLUME 93.7 FL (81-99); MEAN PLATELET VOLUME 9.8 FL (7.4-12.2); MONOCYTES # (AUTO) 0.33 10*3/UL (0.3-0.8); MONOCYTES % (AUTO) 8.1 % (5-15); NEUTROPHILS # (AUTO) 2.37 10*3/UL; NEUTROPHILS % (AUTO) 58.1 % (50-80); PLATELET MORPHOLOGY COMMENT NORMAL MORPHOLOGY (NORM); RBC MORPHOLOGY COMMENT NORMAL MORPHOLOGY (NORM); RED BLOOD COUNT 4.57 10^6/uL (4.20-5.40); WBC MORPHOLOGY COMMENT NORMAL MORPHOLOGY (NORM)
[2018-11-04 12:46] LABS: SERUM ALBUMIN 3.2 g/dL (3.5-4.8)
[2018-11-04 14:56] LABS: VENOUS PH 7.32 (7.32-7.42)
[2018-11-04 15:15] LABS: BILIRUBIN,URINE SMALL (NEG); CLARITY,URINE CLEAR (CLEAR); COLOR,URINE YELLOW (Y); GLUCOSE, URINE (UA) NEGATIVE (NEG); OCCULT BLOOD,URINE MODERATE (NEG); PH,URINE 5.5 (5.0-8.5); PROTEIN,URINE TRACE mg/dl (NEG)
[2018-11-04 15:21] LABS: RENAL EPITHELIAL CELLS,URINE RARE; SQUAMOUS EPITHELIAL CELL,UR MODERATE; URINE CASTS FEW; URINE SAMPLE TYPE CLEAN CATCH URINE; URINE SPECIFIC GRAVITY - MAN 1.023
[2018-11-04 15:23] LABS: AMPHETAMINE SCREEN NEGATIVE (NEG); CANNABINOID SCREEN,URINE NEGATIVE (NEG); COCAINE SCREEN NEGATIVE (NEG); METHADONE URINE SCREEN NEGATIVE (NEG); METHAMPHETAMINES SCREEN,URINE NEGATIVE (NEG); OPIATE SCREEN,URINE NEGATIVE (NEG); URINE SAMPLE TYPE CLEAN CATCH URINE; URINE SPECIFIC GRAVITY - MAN 1.023
[2018-11-04] MEDS ORDERED: FUROSEMIDE 10 MG/1 ML - 4 ML IVP ONE (15:34)
[2018-11-04] MEDS ORDERED: LIDOCAINE W/ SODIUM BICARB 0.5 ML SYR SUBD PRN (17:44)
[2018-11-04] MEDS ORDERED: Potassium Chloride Tab 10 MEQ TAB PO SCH (18:30)
[2018-11-04] MEDS: DONEPEZIL 5 MG TABLET PO SCH (20:37)
[2018-11-04] MEDS: PANTOPRAZOLE 40 MG TABLET PO SCH (20:38)
[2018-11-04] MEDS: LACOSAMIDE 150 MG PO SCH (20:38)
[2018-11-05 04:29] LABS: VENOUS PH 7.47 (7.32-7.42)
[2018-11-05] MEDS ORDERED: Potassium Chloride Tab 10 MEQ TAB PO SCH (07:00)
[2018-11-05] MEDS ORDERED: Magnesium Sulfate 2gm (Premix) 2 GM/50 ML BAG IV ONE (07:17)
[2018-11-05] MEDS: Potassium Chloride Tab 10 MEQ TAB PO SCH ×3 (07:40→17:01)
[2018-11-05] MEDS ORDERED: Sodium Chloride 0.9% 500 ML PRIMARY IV ONE (08:15)
[2018-11-05] MEDS: LACOSAMIDE 150 MG PO SCH ×2 (08:19→20:32)
[2018-11-05] MEDS: METOPROLOL SUCCINATE 25 MG SR 24H TABLET PO SCH (08:40)
[2018-11-05] MEDS: LOSARTAN 25 MG TABLET PO SCH (08:40)
[2018-11-05] MEDS: CITALOPRAM 20 MG TABLET PO SCH (08:40)
[2018-11-05] MEDS: DONEPEZIL 5 MG TABLET PO SCH ×2 (08:41→20:32)
[2018-11-05] MEDS: PANTOPRAZOLE 40 MG TABLET PO SCH ×2 (08:41→20:32)
[2018-11-05] MEDS ORDERED: LOSARTAN 25 MG TABLET PO SCH (09:00)
[2018-11-05] MEDS ORDERED: metFORMIN 500 MG TABLET PO SCH (09:00)
[2018-11-05] MEDS ORDERED: Vancomycin-PHA to Dose IV PRN (09:53)
[2018-11-05] MEDS: Sucralfate Tab 1 GM TAB PO SCH ×3 (12:32→20:32)
[2018-11-06 05:54] LABS: BASOPHILS # (AUTO) 0.03 10*3/UL; BASOPHILS % (AUTO) 0.6 % (0-1); EOSINOPHILS # (AUTO) 0.36 10*3/UL; EOSINOPHILS % (AUTO) 7.5 % (0-8); Hematocrit [HCT] 40.9 % (37.0-47.0); Hemoglobin [HGB] 12.7 g/dL (12.0-16.0); LYMPHOCYTES # (AUTO) 0.99 10*3/uL; MEAN CORPUSCULAR HGB CONC 31.1 g/dL (33-37); MEAN PLATELET VOLUME 10.1 FL (7.4-12.2); MONOCYTES # (AUTO) 0.41 10*3/UL (0.3-0.8); MONOCYTES % (AUTO) 8.6 % (5-15); NEUTROPHILS # (AUTO) 2.99 10*3/UL; NEUTROPHILS % (AUTO) 62.6 % (50-80); PLATELET MORPHOLOGY COMMENT NORMAL MORPHOLOGY (NORM); RBC MORPHOLOGY COMMENT NORMAL MORPHOLOGY (NORM); RED BLOOD COUNT 4.35 10^6/uL (4.20-5.40); WBC MORPHOLOGY COMMENT NORMAL MORPHOLOGY (NORM)
[2018-11-06] MEDS: Sucralfate Tab 1 GM TAB PO SCH ×4 (07:04→20:27)
[2018-11-06] MEDS: FUROSEMIDE 10 MG/1 ML - 2 ML VIAL IVP SCH (07:04)
[2018-11-06] MEDS: Potassium Chloride Tab 10 MEQ TAB PO SCH ×3 (07:05→16:16)
[2018-11-06] MEDS: DONEPEZIL 5 MG TABLET PO SCH ×2 (08:46→20:26)
[2018-11-06] MEDS: PANTOPRAZOLE 40 MG TABLET PO SCH ×2 (08:46→20:27)
[2018-11-06] MEDS: LOSARTAN 25 MG TABLET PO SCH (08:46)
[2018-11-06] MEDS: CITALOPRAM 20 MG TABLET PO SCH (08:46)
[2018-11-06] MEDS: METOPROLOL SUCCINATE 25 MG SR 24H TABLET PO SCH (08:46)
[2018-11-06] MEDS: LACOSAMIDE 150 MG PO SCH ×2 (08:50→20:26)
[2018-11-07] MEDS: Potassium Chloride Tab 10 MEQ TAB PO SCH ×2 (07:27→09:03)
[2018-11-07] MEDS: FUROSEMIDE 10 MG/1 ML - 2 ML VIAL IVP SCH (07:28)
[2018-11-07] MEDS: CITALOPRAM 20 MG TABLET PO SCH (09:02)
[2018-11-07] MEDS: METOPROLOL SUCCINATE 25 MG SR 24H TABLET PO SCH (09:02)
[2018-11-07] MEDS: Sucralfate Tab 1 GM TAB PO SCH ×4 (09:02→20:33)
[2018-11-07] MEDS: DONEPEZIL 5 MG TABLET PO SCH ×2 (09:02→20:33)
[2018-11-07] MEDS: PANTOPRAZOLE 40 MG TABLET PO SCH ×2 (09:02→20:33)
[2018-11-07] MEDS: LOSARTAN 25 MG TABLET PO SCH (09:02)
[2018-11-07] MEDS: FUROSEMIDE 20 MG TABLET PO SCH (09:02)
[2018-11-07] MEDS: LACOSAMIDE 150 MG PO SCH ×2 (09:03→20:33)
[2018-11-07] MEDS: ACETAMINOPHEN 325 MG TABLET PO PRN (13:16)
[2018-11-08] MEDS: FUROSEMIDE 20 MG TABLET PO SCH (07:19)
[2018-11-08] MEDS: Sucralfate Tab 1 GM TAB PO SCH (07:19)
[2018-11-08] MEDS: DONEPEZIL 5 MG TABLET PO SCH (10:02)
[2018-11-08] MEDS: Potassium Chloride Tab 10 MEQ TAB PO SCH (10:03)
[2018-11-08] MEDS: CITALOPRAM 20 MG TABLET PO SCH (10:03)
[2018-11-08] MEDS: LACOSAMIDE 150 MG PO SCH ×2 (10:04→21:31)
[2018-11-08] MEDS: PANTOPRAZOLE 40 MG TABLET PO SCH ×2 (10:04→21:31)
[2018-11-08] MEDS: LOSARTAN 25 MG TABLET PO SCH (10:05)
[2018-11-08] MEDS: METOPROLOL SUCCINATE 25 MG SR 24H TABLET PO SCH (10:05)
[2018-11-08] MEDS: ACETAMINOPHEN 325 MG TABLET PO PRN (13:54)
[2018-11-08] MEDS ORDERED: Sodium Chloride 0.9% 1,000 ML PRIMARY IV ONE ×2 (14:10→18:00)
[2018-11-08 15:25] LABS: BUN/CREATININE RATIO 12.22 (6-20)
[2018-11-08] MEDS ORDERED: Magnesium Sulfate 4gm (Premix) 4 GM/100 ML BAG IV ONE (18:00)
[2018-11-08] MEDS ORDERED: FOLIC ACID 1 MG TABLET PO ONE (19:11)
[2018-11-09 02:33] LABS: BUN/CREATININE RATIO 11.11 (6-20)
[2018-11-09] MEDS: PANTOPRAZOLE 40 MG TABLET PO SCH ×2 (09:06→20:48)
[2018-11-09] MEDS: FOLIC ACID 1 MG TABLET PO SCH (09:06)
[2018-11-09] MEDS: Potassium Chloride Tab 10 MEQ TAB PO SCH (09:06)
[2018-11-09] MEDS: LACOSAMIDE 150 MG PO SCH ×2 (09:07→20:48)
[2018-11-10] MEDS ORDERED: LOSARTAN 25 MG TABLET PO ONE (09:48)
[2018-11-10] MEDS: Potassium Chloride Tab 10 MEQ TAB PO SCH (10:12)
[2018-11-10] MEDS: PANTOPRAZOLE 40 MG TABLET PO SCH ×2 (10:12→21:03)
[2018-11-10] MEDS: LACOSAMIDE 150 MG PO SCH ×2 (10:13→21:04)
[2018-11-10] MEDS: FOLIC ACID 1 MG TABLET PO SCH (10:13)
[2018-11-11 05:10] LABS: BUN/CREATININE RATIO 12.22 (6-20)
[2018-11-11] MEDS ORDERED: LOSARTAN 25 MG TABLET PO SCH (07:00)
[2018-11-11] MEDS: Potassium Chloride Tab 10 MEQ TAB PO SCH (09:26)
[2018-11-11] MEDS: PANTOPRAZOLE 40 MG TABLET PO SCH (09:26)
[2018-11-11] MEDS: FOLIC ACID 1 MG TABLET PO SCH (09:26)
[2018-11-11] MEDS: LACOSAMIDE 150 MG PO SCH (09:26)
[2018-11-11 11:42] VITALS: BP 145/61; RESP 16; TEMP 98.2; O2SAT 92
== END 2018-11-11 13:14 | DRG 308 ==
LOC: ER 11:50 → MED/SURG 17:08
PROVIDERS: ADMIT Internal Medicine; ATTEND Internal Medicine

== ENCOUNTER 2018-12-09 10:11 | Inpatient (IN) ==
[2018-12-09] MEDS ORDERED: Sodium Chloride 0.9% 1,000 ML PRIMARY IV ONE (10:17)
[2018-12-09 11:20] LABS: Hematocrit [HCT] 42.1 % (37.0-47.0); Hemoglobin [HGB] 13.3 g/dL (12.0-16.0); MEAN CORPUSCULAR HGB CONC 31.6 g/dL (33-37); MEAN CORPUSCULAR VOLUME 92.5 FL (81-99); MEAN PLATELET VOLUME 10.1 FL (7.4-12.2); NEUTROPHILS % (AUTO) 88.2 % (50-80); RED BLOOD COUNT 4.55 10^6/uL (4.20-5.40)
[2018-12-09 11:21] LABS: BASOPHILS # (AUTO) 0.05 10*3/UL; BASOPHILS % (AUTO) 0.3 % (0-1); EOSINOPHILS # (AUTO) 0 10*3/UL; EOSINOPHILS % (AUTO) 0 % (0-8); MONOCYTES # (AUTO) 1.09 10*3/UL (0.3-0.8); NEUTROPHILS # (AUTO) 16.12 10*3/UL; PLATELET MORPHOLOGY COMMENT NORMAL MORPHOLOGY (NORM); RBC MORPHOLOGY COMMENT NORMAL MORPHOLOGY (NORM); WBC MORPHOLOGY COMMENT NORMAL MORPHOLOGY (NORM)
[2018-12-09 11:25] LABS: BUN/CREATININE RATIO 18.33 (6-20); SERUM ALBUMIN 3.8 g/dL (3.5-4.8)
[2018-12-09 11:37] LABS: CLARITY,URINE CLEAR (CLEAR); COLOR,URINE ORANGE (Y); GLUCOSE, URINE (UA) NEGATIVE (NEG); OCCULT BLOOD,URINE NEGATIVE (NEG); PROTEIN,URINE TRACE mg/dl (NEG)
[2018-12-09 11:42] LABS: BACTERIA,URINE MODERATE; URINE SAMPLE TYPE CATH SPECIMEN; WBC,URINE 0-3
[2018-12-09 11:43] LABS: BILIRUBIN,URINE MODERATE (NEG)
[2018-12-09] MEDS ORDERED: cefTRIAXone Inj 2 GM in Sodium Chloride 0.9% 100 ML IV ONE (13:16)
[2018-12-09] MEDS ORDERED: CALCIUM CARBONATE 500 MG (TUMS) CHEWABLE TABLET PO PRN (14:16)
[2018-12-09] MEDS ORDERED: DOCUSATE 100 MG CAPSULE PO PRN (14:16)
[2018-12-09] MEDS ORDERED: ACETAMINOPHEN 325 MG TABLET PO PRN ×2 (14:16)
[2018-12-09] MEDS ORDERED: LIDOCAINE W/ SODIUM BICARB 0.5 ML SYR SUBD PRN (14:16)
[2018-12-09] MEDS ORDERED: ONDANSETRON 4 MG/2 ML VIAL IVP PRN (14:16)
[2018-12-09] MEDS ORDERED: metroNIDAZOLE 500mg (Premix) 500 MG/100 ML BAG IV SCH (14:30)
[2018-12-09] MEDS ORDERED: LORazepam 2 MG/1 ML VIAL IVP ONE (14:53)
[2018-12-09] MEDS: Sodium Chloride 0.9% 1,000 ML PRIMARY IV SCH (16:07)
[2018-12-09] MEDS ORDERED: Fleet Enema w/Mineral Oil 133ml RECTAL ONE (20:07)
[2018-12-09] MEDS: PANTOPRAZOLE 40 MG TABLET PO SCH (20:54)
[2018-12-09] MEDS: LACOSAMIDE 150 MG PO SCH (21:42)
[2018-12-10] MEDS: Sodium Chloride 0.9% 1,000 ML PRIMARY IV SCH ×3 (00:22→14:27)
[2018-12-10 05:51] LABS: BASOPHILS % (AUTO) 0.5 % (0-1); EOSINOPHILS % (AUTO) 0.2 % (0-8); Hematocrit [HCT] 36.3 % (37.0-47.0); Hemoglobin [HGB] 11.4 g/dL (12.0-16.0); MEAN CORPUSCULAR HGB CONC 31.4 g/dL (33-37); MEAN CORPUSCULAR VOLUME 93.6 FL (81-99); MEAN PLATELET VOLUME 10.6 FL (7.4-12.2); MONOCYTES % (AUTO) 7.2 % (5-15); RED BLOOD COUNT 3.88 10^6/uL (4.20-5.40)
[2018-12-10 05:52] LABS: BASOPHILS # (AUTO) 0.08 10*3/UL; EOSINOPHILS # (AUTO) 0.03 10*3/UL; LYMPHOCYTES # (AUTO) 1.04 10*3/uL; MONOCYTES # (AUTO) 1.15 10*3/UL (0.3-0.8); NEUTROPHILS # (AUTO) 13.68 10*3/UL; PLATELET MORPHOLOGY COMMENT NORMAL MORPHOLOGY (NORM); RBC MORPHOLOGY COMMENT NORMAL MORPHOLOGY (NORM); WBC MORPHOLOGY COMMENT NORMAL MORPHOLOGY (NORM)
[2018-12-10] MEDS: POTASSIUM CHLORIDE 20 MEQ TAB PO SCH (08:32)
[2018-12-10] MEDS: PANTOPRAZOLE 40 MG TABLET PO SCH ×2 (08:32→20:12)
[2018-12-10] MEDS: CHOLECALCIFEROL 1000 IU TABLET PO SCH (08:32)
[2018-12-10] MEDS: LOSARTAN 50 MG TABLET PO SCH (08:32)
[2018-12-10] MEDS: LACOSAMIDE 150 MG PO SCH ×2 (08:37→20:12)
[2018-12-10] MEDS: metroNIDAZOLE 500mg (Premix) 500 MG/100 ML BAG IV SCH ×2 (10:40→17:23)
[2018-12-10] MEDS ORDERED: Fleet Enema w/Mineral Oil 133ml RECTAL ONE (11:04)
[2018-12-10] MEDS ORDERED: cefTRIAXone Inj 2 GM in Sodium Chloride 0.9% 100 ML IV SCH (14:00)
[2018-12-11] MEDS: metroNIDAZOLE 500mg (Premix) 500 MG/100 ML BAG IV SCH ×2 (01:17→09:08)
[2018-12-11 05:59] LABS: BLOOD UREA NITROGEN 16 mg/dL (7-22); BUN/CREATININE RATIO 17.77 (6-20)
[2018-12-11 06:26] LABS: Hematocrit [HCT] 36.8 % (37.0-47.0); Hemoglobin [HGB] 11.4 g/dL (12.0-16.0); MEAN CORPUSCULAR VOLUME 93.4 FL (81-99); MEAN PLATELET VOLUME 10.9 FL (7.4-12.2); MONOCYTES % (AUTO) 6.7 % (5-15); NEUTROPHILS % (AUTO) 82.3 % (50-80); RED BLOOD COUNT 3.94 10^6/uL (4.20-5.40)
[2018-12-11 06:27] LABS: BASOPHILS # (AUTO) 0.07 10*3/UL; BASOPHILS % (AUTO) 0.6 % (0-1); EOSINOPHILS % (AUTO) 1.6 % (0-8); LYMPHOCYTES # (AUTO) 1.01 10*3/uL; MONOCYTES # (AUTO) 0.83 10*3/UL (0.3-0.8); NEUTROPHILS # (AUTO) 10.12 10*3/UL; PLATELET MORPHOLOGY COMMENT NORMAL MORPHOLOGY (NORM); RBC MORPHOLOGY COMMENT NORMAL MORPHOLOGY (NORM); WBC MORPHOLOGY COMMENT NORMAL MORPHOLOGY (NORM)
[2018-12-11] MEDS: PANTOPRAZOLE 40 MG TABLET PO SCH ×2 (09:08→20:45)
[2018-12-11] MEDS: CHOLECALCIFEROL 1000 IU TABLET PO SCH (09:08)
[2018-12-11] MEDS: POTASSIUM CHLORIDE 20 MEQ TAB PO SCH (09:08)
[2018-12-11] MEDS: LOSARTAN 50 MG TABLET PO SCH (09:08)
[2018-12-11] MEDS: LACOSAMIDE 150 MG PO SCH ×2 (09:14→20:45)
[2018-12-11] MEDS ORDERED: Ertapenem Inj 1 GM in Sodium Chloride 0.9% 100 ML IV SCH (11:00)
[2018-12-12 05:35] VITALS: O2SAT 94
[2018-12-12 07:36] VITALS: BP 148/55; RESP 26; TEMP 97.9
[2018-12-12 07:47] LABS: BASOPHILS # (AUTO) 0.06 10*3/UL; BASOPHILS % (AUTO) 0.8 % (0-1); EOSINOPHILS # (AUTO) 0.25 10*3/UL; EOSINOPHILS % (AUTO) 3.2 % (0-8); Hematocrit [HCT] 38.5 % (37.0-47.0); LYMPHOCYTES # (AUTO) 0.91 10*3/uL; MEAN CORPUSCULAR HGB CONC 31.2 g/dL (33-37); MEAN CORPUSCULAR VOLUME 92.3 FL (81-99); MONOCYTES # (AUTO) 0.59 10*3/UL (0.3-0.8); MONOCYTES % (AUTO) 7.6 % (5-15); NEUTROPHILS # (AUTO) 5.89 10*3/UL; NEUTROPHILS % (AUTO) 76.1 % (50-80); RED BLOOD COUNT 4.17 10^6/uL (4.20-5.40)
[2018-12-12 07:50] LABS: PLATELET MORPHOLOGY COMMENT NORMAL MORPHOLOGY (NORM); RBC MORPHOLOGY COMMENT NORMAL MORPHOLOGY (NORM); WBC MORPHOLOGY COMMENT NORMAL MORPHOLOGY (NORM)
[2018-12-12] MEDS: PANTOPRAZOLE 40 MG TABLET PO SCH (09:37)
[2018-12-12] MEDS: POTASSIUM CHLORIDE 20 MEQ TAB PO SCH (09:37)
[2018-12-12] MEDS: CHOLECALCIFEROL 1000 IU TABLET PO SCH (09:37)
[2018-12-12] MEDS: LOSARTAN 50 MG TABLET PO SCH (09:37)
[2018-12-12] MEDS: LACOSAMIDE 150 MG PO SCH (09:38)
[2018-12-12] MEDS ORDERED: Amoxicill/Clav 875/125mg Tab 1 TAB TAB PO SCH (10:15)
== END 2018-12-12 11:27 | DRG 641 ==
LOC: ER 10:11 → MED/SURG 13:39
PROVIDERS: ADMIT Family Medicine; ATTEND Family Medicine